=== PATIENT | female | born 1980 | race Caucasian/White ===

== ENCOUNTER 2024-02-13 20:02 | Emergency (ER) | payer SELFPAY ==
[~2024-02-13] VITALS: Ht 165.1 cm; Wt 70.0 kg
[2024-02-13 20:09] VITALS: BP 157/102; PULSE 112; RESP 16; O2SAT 100
[2024-02-13] MEDS ORDERED: AMOX1TAB16 MT (20:51)
[2024-02-13 20:54] VITALS: TEMP 98.3
[2024-02-13] MEDS: ACETAMINOPHEN 325MG TABLET PO ONE (20:54)
== END 2024-02-13 21:30 | disposition home or self-care (01) ==
LOC: ER 20:02
DX: S41.152A Open bite of left upper arm, initial encounter (principal); W54.0XXA Bitten by dog, initial encounter; Y93.89 Activity, other specified; Y92.89 Other specified places as the place of occurrence of the external cause; Y99.8 Other external cause status
CPT/HCPCS: 73060; 99283